=== PATIENT | male | born 1990 | race Caucasian/White ===

== ENCOUNTER 2020-06-08 08:54 | Emergency (ER) | payer OTHER ==
[~2020-06-08] VITALS: Ht 182.9 cm; Wt 100.0 kg
[2020-06-08] MEDS ORDERED: IBUP200C27 PO (09:01)
--- NOTE | 2020-06-08 10:04 | REP ---
INDICATION: remote trauma/fxs, increased pain and radiculopathy. COMPARISON: None. TECHNIQUE: Axial CT images with multiplanar reformations. FINDINGS: Degenerative disc disease with disc space narrowing notable T12-L1 and L1-L2. There is anterior osteophytic spurring prominent at L1-2. There is a mild wedge compression of L1. On the sagittal T2 weighted images, no definite limiting canal stenosis. No fracture identified. On the review of axial images, At L1-2 mild canal narrowing, mild right and moderate left foraminal narrowing. At L2-3 through L4-5 no definite canal or foraminal narrowing. At L5-S1 loss of disc height with mild canal narrowing and mild right and moderate left foraminal narrowing. IMPRESSION: No acute findings. Advanced degenerative change at T12-L1 and L1-L2 levels. Prominent anterior osteophyte formation at L1-2 level. No definite high-grade canal stenosis. Moderate foraminal narrowing on the left at L1-2 and L5-S1 levels. <Electronically signed by Rashid Saenz > 06/08/20 1000
[2020-06-08] MEDS ORDERED: KETOROLAC 30 MG/ML 1ML VIAL IM ONE (10:45)
[2020-06-08] MEDS ORDERED: ACETAMINOPHEN 325 MG TAB PO ONE (10:45)
[2020-06-08] MEDS ORDERED: MEDR4PAK PO (11:37)
[2020-06-08 11:44] VITALS: BP 152/91
== END 2020-06-08 10:50 | disposition home or self-care (01) ==
LOC: M ED 08:54
DX: M54.9 Dorsalgia, unspecified (principal); G89.29 Other chronic pain; X50.0XXA Overexertion from strenuous movement or load, initial encounter; F17.200 Nicotine dependence, unspecified, uncomplicated; Y92.9 Unspecified place or not applicable; Y93.9 Activity, unspecified; Y99.9 Unspecified external cause status
CPT/HCPCS: 72131; 80047; 96372; 99283; J1885

== ENCOUNTER 2023-05-13 09:42 | Emergency (ER) | payer MEDICAID, OTHER, SELFPAY ==
[~2023-05-13] VITALS: Ht 182.9 cm; Wt 92.6 kg
[~2023-05-13 09:42] MED LIST: IBUP200C27 PO; MEDR4PAK PO
[2023-05-13 09:43] VITALS: BP 142/91; TEMP 97.4; O2SAT 99
== END 2023-05-13 12:41 | disposition home or self-care (01) ==
LOC: M ED 09:42
DX: N43.3 Hydrocele, unspecified (principal)

== ENCOUNTER 2024-03-11 09:18 | Emergency (ER) | payer OTHER, SELFPAY ==
[~2024-03-11] VITALS: Ht 182.9 cm; Wt 91.4 kg
[2024-03-11] MEDS ORDERED: MORPHINE 4 MG/ML 1ML VIAL IV ONE (09:50)
[2024-03-11 10:10] LABS: BASO % 0.4 % (0.0-1.0); EOS # 0.2 10^3/uL (0.0-0.5); EOS % 2.6 % (0.0-3.0); HEMATOCRIT 42.9 % (42.0-52.0); LYMPH # 1.7 10^3/uL (1.5-5.0); LYMPH % 24.6 % (24.0-44.0); MEAN CORPUSCULAR HEMOGLOBIN 28.7 pg (27.0-33.0); MEAN CORPUSCULAR VOLUME 82.2 fl (80.0-96.0); MONO # 0.5 10^3/uL (0.0-0.8); MONO % 7.4 % (2.0-8.0); NEUTROPHILS # 4.5 10^3/uL (1.5-8.5); NEUTROPHILS % 64.9 % (36.0-66.0); PLATELET COUNT, AUTOMATED 175 10^3/uL (150-450); RED BLOOD COUNT 5.22 10^6/uL (4.30-6.10)
[2024-03-11] MEDS ORDERED: BUPR1FIL (10:14)
[2024-03-11] MEDS: ONDANSETRON 4MG 2ML VIAL IV ONE (10:30)
[2024-03-11] MEDS: KETOROLAC 30 MG/ML 1ML VIAL IV ONE (10:30)
[2024-03-11 10:38] LABS: BLOOD UREA NITROGEN 19 MG/DL (9-23); CALCIUM LEVEL 9.2 MG/DL (8.5-10.1); CARBON DIOXIDE LEVEL 27 MMOL/L (20-31); CHLORIDE LEVEL 107 MMOL/L (98-107); CREATININE FOR GFR 0.86 MG/DL (0.70-1.30); GLOMERULAR FILTRATION RATE > 60.0 (>60); GLUCOSE, FASTING 91 MG/DL (60-100); POTASSIUM SERUM 4.4 MMOL/L (3.5-5.1); SODIUM LEVEL 142 MMOL/L (136-145)
[2024-03-11] MEDS: ACETAMINOPHEN *IV* 1,000 MG in IV 1 EA IV ONE (11:47)
[2024-03-11] MEDS: HYDROMORPHONE HCL 0.5 MG/ 0.5 ML SYRINGE IV PRN (12:25)
[2024-03-11] MEDS: LIDOCAINE 2% 5ML JELLY UROJET TOP ONE (14:12)
[2024-03-11] MEDS ORDERED: FLOM0.4C39 PO (15:14)
[2024-03-11] MEDS ORDERED: IBUP80TA PO (15:14)
[2024-03-11 15:37] LABS: KETONE, URINE AUTO RFX NEGATIVE (NEGATIVE); LEUKOCYTE ESTERASE UR AUTO RFX NEGATIVE (NEGATIVE); MUCUS, URINE RFX SMALL (NEGATIVE); NITRITE, URINE AUTO RFX NEGATIVE (NEGATIVE); RBC, URINE AUTO RFX 1 /HPF (0-3); SQUAM EPITHELIAL CELL UR AURFX 0 /HPF (0-6); WBC, URINE AUTO RFX 0 /HPF (0-3)
[2024-03-11 15:51] VITALS: BP 175/94; TEMP 99.5; O2SAT 100
[2024-03-11] MEDS: BISACODYL 10MG SUPP PR ONE (15:55)
== END 2024-03-11 16:23 | disposition left against medical advice (07) ==
LOC: M ED 09:18
DX: S39.94XA Unspecified injury of external genitals, initial encounter (principal); S30.21XA Contusion of penis, initial encounter; N49.2 Inflammatory disorders of scrotum; R33.9 Retention of urine, unspecified; Y92.9 Unspecified place or not applicable; Y04.0XXA Assault by unarmed brawl or fight, initial encounter; Y99.9 Unspecified external cause status; Z79.1 Long term (current) use of non-steroidal anti-inflammatories (NSAID); Z79.899 Other long term (current) drug therapy; Y93.89 Activity, other specified
CPT/HCPCS: 51703; 76857; 76870; 80048; 81001; 85025; 93976; 96374; 96375; 96376; 99284; J0131; J1171; J1885; J2405

== ENCOUNTER → 2024-11-18 | Outpatient (CLI) | payer OTHER ==
[~2024-11-18] MED LIST changes: +BUPR1FIL; +IBUP80TA PO; +TAMS-18 PO
[2024-11-18 10:02] LABS: PLATELET COUNT, AUTOMATED 210 10^3/uL (150-450)
[2024-11-18 11:28] LABS: GC DNA AMPLIFICATION NEGATIVE (NEGATIVE)
[2024-11-18 12:04] LABS: HIV 1&2 SCREEN NEGATIVE (NEGATIVE)
[2024-11-18 12:12] LABS: HEPATITIS C VIRUS ABY INDEX < 0.02 INDEX (<0.8)
[2024-11-18 13:47] LABS: ALT/SGPT 28 U/L (7.0-40); CALCIUM LEVEL 9.5 MG/DL (8.5-10.1); CARBON DIOXIDE LEVEL 29 MMOL/L (20-31); CHLORIDE LEVEL 105 MMOL/L (98-107); CREATININE FOR GFR 0.90 MG/DL (0.70-1.30); GLOMERULAR FILTRATION RATE > 90.0 (>60); POTASSIUM SERUM 4.5 MMOL/L (3.5-5.1); SODIUM LEVEL 137 MMOL/L (136-145)
[2024-11-18 14:20] LABS: AST/SGOT 27 U/L (<34)
== END ==
LOC: M LAB 09:10
PROVIDERS: ATTEND Family Medicine
DX: F11.20 Opioid dependence, uncomplicated (principal)